=== PATIENT | female | born 1975 | race Asian ===

== ENCOUNTER 2022-03-03 15:10 | Emergency (ER) | payer OTHER ==
[~2022-03-03] VITALS: Ht 152.4 cm; Wt 59.0 kg
[2022-03-03 15:32] VITALS: BP 137/81
== END 2022-03-03 18:58 | disposition left against medical advice (07) ==
LOC: ER 15:10
DX: Z53.21 Procedure and treatment not carried out due to patient leaving prior to being seen by health care provider (principal)